=== PATIENT | male | born 1945 | race Caucasian/White ===

== ENCOUNTER → 2018-01-02 | Outpatient (CLI) | payer OTHER ==
[~2018-01-02] MED LIST: IOPAMIDOL (ISOVUE-300) 100 ML BTL ONE
== END ==
LOC: FIMAGING 10:46
PROVIDERS: ATTEND Physician Assistant Medical
DX: C61 Malignant neoplasm of prostate (principal); R59.1 Generalized enlarged lymph nodes
CPT/HCPCS: 74177; Q9967

== ENCOUNTER → 2018-01-08 | Outpatient (CLI) | payer OTHER | LOC: FIMAGING 10:17 | PROVIDERS: ATTEND Physician Assistant Medical | DX: C61 Malignant neoplasm of prostate (principal) | CPT/HCPCS: 78306; A9503 ==

== ENCOUNTER 2018-05-14 07:34 | Emergency (ER) | payer OTHER ==
[2018-05-14 07:39] VITALS: BP 178/85
--- NOTE | 2018-05-14 07:41 | EDPHY ---
H & P Stated Complaint: unable to urinate Time Seen by Provider: 05/14/18 08:05 HPI/ROS: CHIEF COMPLAINT: Unable to urinate HISTORY OF PRESENT ILLNESS: 73-year-old male with prostate cancer presents with inability to urinate. Last normal urination was yesterday evening. Throughout the night, he woke multiple times with the urge to urinate, followed by dribbling urination. Ultimately he was unable to urinate. Associated with gradually increasing lower abdominal discomfort. No prior history of urinary retention. REVIEW OF SYSTEMS: complete 10 point ROS reviewed and is negative except for the noted elements in the HPI Source: Patient - Medical/Surgical History Hx Asthma: No Hx Chronic Respiratory Disease: No Hx Diabetes: No Hx Cardiac Disease: No Hx Renal Disease: No Hx Cirrhosis: No Hx Alcoholism: No Hx HIV/AIDS: No Hx Splenectomy or Spleen Trauma: No Other PMH: prostate ca - Social History Smoking Status: Never smoked Alcohol Use: Sober Additional Social History: Urologist: Dr. Vivas - Physical Exam Exam: General Appearance: Alert, pleasant, seen after Dunn catheter placement Eyes: Pupils equal and round, no conjunctival pallor ENT, Mouth: Mucous membranes moist Neck: Normal inspection Respiratory: Lungs are clear to auscultation Cardiovascular: Regular rate and rhythm Gastrointestinal: Abdomen is soft and nontender Neurological: A&O, nonfocal exam Skin: Warm and dry Extremities: Normal inspection Psychiatric: Mood and affect normal Constitutional: Initial Vital Signs Temperature (C) 36.7 C 05/14/18 07:37 Heart Rate 91 05/14/18 07:37 Respiratory Rate 24 H 05/14/18 07:37 Blood Pressure 178/85 H 05/14/18 07:37 O2 Sat (%) 97 05/14/18 07:37 O2 Delivery Mode Room Air Allergies/Adverse Reactions: No Known Allergies Allergy (Unverified 05/14/18 07:36) Home Medications: Medication Instructions Recorded Aspirin 05/14/18 Heparin 1,000 Unit/10 (100/ml) 05/14/18 Medical Decision Making ED Course/Re-evaluation: Bladder scan reveals 678 mL of urine. A Dunn catheter was placed, after which the patient felt much better. Urinalysis is normal. Dunn catheter care instructions given. Will follow up with Dr. Vivas in the office in 2 days. - Data Points Laboratory Results: 05/14/18 08:00 Urine Color YELLOW Urine Appearance CLEAR Urine pH 5.0 (5.0-7.5) Ur Specific [place] 1.018 (1.002-1.030) Urine Protein NEGATIVE (NEGATIVE) Urine Ketones NEGATIVE (NEGATIVE) Urine Blood NEGATIVE (NEGATIVE) Urine Nitrate NEGATIVE (NEGATIVE) Urine Bilirubin NEGATIVE (NEGATIVE) Urine Urobilinogen NEGATIVE EU EU (0.2-1.0) Ur Leukocyte Esterase NEGATIVE (NEGATIVE) Urine Glucose NEGATIVE (NEGATIVE) Departure - Departure Disposition: Home, Routine, Self-Care Clinical Impression: Acute retention of urine Condition: Good Instructions: Urinary Retention in Men (ED), Dunn Catheter Placement and Care (ED) Referrals: Dao Vivas MD [Medical Doctor] - 2-3 days, call for appt. (Call Dr. Vivas to make an appointment.)
== END 2018-05-14 08:35 | disposition home or self-care (01) ==
PROC: 0T9B70Z Drainage of Bladder with Drainage Device, Via Natural or Artificial Opening (ICD-10-PCS; principal; 2018-05-14)
DX: R33.9 Retention of urine, unspecified (principal); C61 Malignant neoplasm of prostate

== ENCOUNTER 2018-05-29 13:30 | Observation (INO) | payer OTHER ==
--- NOTE | 2018-07-02 16:39 | GHP ---
ADMISSION DIAGNOSES: Prostate obstruction, urinary retention and prostate cancer. HISTORY OF PRESENT ILLNESS: This is a 73-year-old gentleman who has had prostate cancer and he has b een on androgen deprivation therapy because of an elevated PSA of 195 and he had a biopsy in 2010 vladimir t showed [place] 6 in 4 cores. He had progression of disease without any other intervention. At the present time, he is admitted for a TURP because of his urinary retention. His PSA originally in the year was at 253 and most recent PSA was 11.3 as of 06/16/2018. He had a creatinine of 1, BUN of 24. His glucose at that time was 95 but he has had a previous hemoglobin A1c up to 6.3% as of 06/16/2018 and the estimated blood glucose average was 134. At the present time, he is admitted for a TUR of th e prostate because of urinary retention. He has had a cardiac clearance. PAST MEDICAL HISTORY: Prostate cancer. He also had a left hydrocele and urinary retention. PAST SURGICAL HISTORY: Aspiration of hydrocele, ultrasound and biopsy of the prostate and leg surger y. MEDICATIONS: Depo-Lupron. ALLERGIES: None. FAMILY HISTORY: Noncontributory. SOCIAL HISTORY: Moderate alcohol consumption, nonsmoker. REVIEW OF SYSTEMS: Negative cardiac, respiratory, GI and endocrine. PHYSICAL EXAMINATION: VITAL SIGNS: Stable. CHEST: Clear. HEART: Regular rate and rhythm. ABDOME N: Normal. No organomegaly, rebound or guarding. LOWER EXTREMITIES: Normal at the present time. He as noted had a PSA that went from 253 down to 11.3 on Lupron. He has had the elevated hemoglobin A1c. His prostate volume by ultrasound as of March 2018 was 97 g. He had also had evaluation fo r his prostate cancer that showed intrapelvic lymph node metastasis. At the present time, he is admit shannan for a TUR of the prostate. Indications, complications and options have been discussed. Written a nd verbal consent has been obtained and he is admitted as for the above procedure. /[id number]/MODL
[2018-07-03] MEDS ORDERED: ceFAZolin 2 GM/DEXTROSE 100 ML IV ONE (09:22)
[2018-07-03] MEDS ORDERED: LR 1,000 ML IV ONE (09:40)
[2018-07-03] MEDS ORDERED: LIDOCAINE 1% 2 ML INJ ID PRN (09:40)
[2018-07-03] MEDS ORDERED: LIDOCAINE 2% 2 ML INJ ONE (10:14)
[2018-07-03] MEDS ORDERED: ROCURONIUM 50 MG/5 ML VIAL ONE (10:14)
[2018-07-03] MEDS ORDERED: ONDANSETRON 4 MG/2 ML VIAL ONE (10:14)
[2018-07-03] MEDS ORDERED: DEXAMETHASONE 4 MG/ML VIAL ONE (10:14)
[2018-07-03] MEDS ORDERED: PROPOFOL 200 MG/20 ML VIAL ONE (10:15)
[2018-07-03] MEDS ORDERED: fentaNYL 100 MCG/2 ML INJ ONE ×2 (10:15→11:13)
[2018-07-03] MEDS ORDERED: LIDOCAINE 2% JELLY 20 ML (UROJECT) ONE (10:34)
[2018-07-03] MEDS ORDERED: OPIUM/BELLADONNA ALKALO SUPP PR PRN (10:42)
[2018-07-03] MEDS ORDERED: HYDROCODONE/APAP 5/325 TAB PO PRN (10:42)
[2018-07-03] MEDS ORDERED: ONDANSETRON 4 MG/2 ML VIAL IVP PRN (10:43)
[2018-07-03] MEDS ORDERED: ACETAMINOPHEN 325 MG TAB PO PRN (10:43)
[2018-07-03] MEDS ORDERED: ZOLPIDEM TARTRATE 5 MG TAB PO PRN (10:43)
[2018-07-03] MEDS ORDERED: ONDANSETRON DISINTEGRATING 4 MG TAB PO PRN (10:43)
[2018-07-03] MEDS ORDERED: D5W LR 1,000 ML IV SCH (10:45)
--- NOTE | 2018-07-03 10:45 | PDANEPAE ---
ANE History of Present Illness BPH, TURP ANE Past Medical History - Cardiovascular History Hx Hypertension: No Hx Arrhythmias: No Hx Chest Pain: No Hx Coronary Artery / Peripheral Vascular Disease: No Hx CHF / Valvular Disease: No Hx Palpitations: No Cardiovascular History Comment: shortness of breath while exercising 02/2018 NOW RESOLVED. Saw broadcast technician and tests were done. - Pulmonary History Hx COPD: No Hx Asthma/Reactive Airway Disease: No Hx Recent Upper Respiratory Infection: No Hx Oxygen in Use at Home: No Hx Sleep Apnea: No Sleep Apnea Screening Result - Last Documented: Positive - Neurologic History Hx Cerebrovascular Accident: No Hx Seizures: No Hx Dementia: No - Endocrine History Hx Diabetes: No - Renal History Hx Renal Disorders: Yes Renal History Comment: BPH - Liver History Hx Hepatic Disorders: No - Neurological & Psychiatric Hx Hx Neurological and Psychiatric Disorders: No - Cancer History Hx Cancer: No - Congenital Disorder History Hx Congenital Disorders: No - GI History Hx Gastrointestinal Disorders: No - Other Health History Other Health History: NEG - Chronic Pain History Chronic Pain: No - Surgical History Prior Surgeries: FX LT LEG ORIF 2007 ANE Review of Systems Review of Systems: - Exercise capacity METS (RN): 4 METS ANE Patient History - Allergies Allergies/Adverse Reactions: No Known Allergies Allergy (Verified 07/03/18 09:28) - Home Medications Home Medications: Aspirin [Aspirin 81mg (*)] 81 mg PO DAILY 05/20/18 [Last Taken 06/19/18] Leuprolide Acetate [Eligard 22.5 mg (*)] 22.5 mg SC Q3M 05/20/18 [Last Taken ] Rosuvastatin Calcium [Crestor 10mg (RX)] 10 mg PO DAILY 07/01/18 [Last Taken Unknown] - NPO status NPO Since - Liquids (Date): 07/03/18 NPO Since - Liquids (Time): 06:00 NPO Since - Solids (Date): 07/02/18 NPO Since - Solids (Time): 18:00 - Smoking Hx Smoking Status: Never smoked - Family Anes Hx Family Hx Anesthesia Complications: NEG ANE Labs/Vital Signs - Vital Signs Blood Pressure: 134/78 Heart Rate: 68 Respiratory Rate: 16 O2 Sat (%): 95 Height: 180.34 cm Weight: 81.647 kg ANE Physical Exam - Airway Neck exam: FROM Mallampati Score: Class 2 Mouth exam: normal dental/mouth exam - Pulmonary Pulmonary: no respiratory distress - Cardiovascular Cardiovascular: regular rate and rhythym - ASA Status ASA Status: II ANE Anesthesia Plan Anesthesia Plan: general endotracheal anesthesia Total IV Anesthesia: No
[2018-07-03] MEDS ORDERED: MIDAZOLAM 2 MG/2 ML VIAL IVP ONE (10:46)
--- NOTE | 2018-07-03 10:46 | POSTOPPROG ---
Post Op Note Date of Operation: 07/03/18 (Dictated) Surgeon: Dao Vivas Anesthesia: LMA Pre-op Diagnosis: urinary retention, prostate cancer Procedure: TURP Inf/Abcess present in the surg proc area at time of surgery?: No EBL: 50-100 Drains: Other (catheter) Specimen(s): sent
[2018-07-03] MEDS ORDERED: MIDAZOLAM 2 MG/2 ML VIAL ONE (10:48)
[2018-07-03] MEDS ORDERED: GENTAMICIN SULFATE 80 MG/2 ML VIAL ONE (11:18)
[2018-07-03] MEDS ORDERED: NALOXONE HCL 0.4 MG/ML INJ IVP PRN (11:55)
[2018-07-03] MEDS ORDERED: fentaNYL 100 MCG/2 ML INJ IVP PRN (11:55)
[2018-07-03] MEDS ORDERED: oxyCODONE IR 5 MG TAB PO PRN (11:55)
[2018-07-03] MEDS ORDERED: ALBUTEROL 3 ML DEYVIAL IH PRN (11:55)
[2018-07-03] MEDS ORDERED: ACETAMINOPHEN 500 MG TAB PO PRN (11:55)
[2018-07-03] MEDS ORDERED: HYDROmorphONE/DILAUDID 2 MG/ML INJ IVP PRN (11:55)
[2018-07-03] MEDS ORDERED: MEPERIDINE 25 MG/0.5 ML AMP IVP PRN (11:55)
[2018-07-03] MEDS ORDERED: LR 500 ML IV PRN (11:55)
[2018-07-03] MEDS ORDERED: PROMETHAZINE HCL 25 MG/ML INJ IVP PRN (11:55)
--- NOTE | 2018-07-03 12:25 | POSTANESTH ---
Post Anesthetic Evaluation Cardiovascular Status: Normal, Stable Respiratory Status: Normal, Stable Level of Consciousness/Mental Status: Can Participate in Eval Pain Control: Adequate, Prn Tx Ordered Nausea/Vomiting Control: Adequate, Prn Tx Ordered Complications Possibly Related to Anesthesia: None Noted
--- NOTE | 2018-07-03 13:16 | GOP ---
DATE OF OPERATION: 07/03/2018 SURGEON: Dao Vivas MD PREOPERATIVE DIAGNOSIS: Prostate cancer with BPH, urinary obstruction. POSTOPERATIVE DIAGNOSIS: Prostate cancer with BPH, urinary obstruction. PROCEDURE PERFORMED: Transurethral resection of the prostate. FINDINGS: DESCRIPTION OF PROCEDURE: Gentleman after undergoing general anesthesia, being prepped and draped in normal sterile fashion, appropriate time-out, he received Ancef and gentamicin because of an indwell ing catheter. Then at that point, the scope was passed under direct vision. He had obstruction from his BPH and prostate cancer. The ureteral orifices were in normal position. Trigone did not appear to be infiltrated. At that point, the TUR was started by taking around the anterior part of the rig ht lateral lobe and right portion of the posterior lobe. Left lateral lobe and left portion of the p osterior most lobe resected in a similar fashion. At the end of the procedure, bladder was Ellik'd f ree of all chips and clots. Visualization revealed no residual chips or clots. Ureteral orifices pr eserved. External sphincter approximated at the midline symmetrically. Verumontanum preserved. Samantha brenner sent to Pathology. Uro-Jet placed in the urethra. A 22 three-way catheter passed. 90 cc ball oon inflated, traction placed, and irrigated clear. He will be admitted for postoperative care. /[id number]/MODL
--- NOTE | 2018-07-03 14:06 | ASMTCMCOM ---
CM Note CM Note Notes: CM spoke to MARANDA Stockton regarding d/c POC. Pt is a 73 y/o man admitted for prostate obstruction, urinary retention and prostate cancer. Pt will most likely d/c independent when medically stable. No therapies ordered at this time. CM available for changes. Plan: Independent Date Signed: 07/03/2018 02:05 PM Electronically Signed By:MANJULA Kerns
--- NOTE | 2018-07-04 11:00 | ASMTLACE ---
LACE Length of stay for Answers: 1 day current admission Acuity / Level of Answers: Yes Care: Did the patient have an inpatient admission? Comorbidities - select Answers: Any tumor (including all that apply lymphoma or leukemia) # of Emergency department Answers: 1-2 visits in the last 6 months Score: 7 Date Signed: 07/04/2018 11:00 AM Electronically Signed By:Michaela Payton RN
[2018-07-04 12:04] VITALS: BP 146/83
--- NOTE | 2018-07-04 14:58 | GDS ---
PREOPERATIVE DIAGNOSIS: Benign prostatic hypertrophy with prostate cancer and urinary obstruction. POSTOPERATIVE DIAGNOSIS: Benign prostatic hypertrophy with prostate cancer and urinary obstruction. After full discussion of options in the office with the full understanding that a TURP is not a treat ment for prostate cancer, patient elected to undergo a TURP for relief of urinary obstruction. This was done without complication, and tissue was sent for pathology. He is being discharged home in goo d condition. He is to follow up in our office in 3 weeks or on Saturday or Saturday if he has a cathete rMatthieu /[id number]/MODL
== END 2018-07-04 15:39 | disposition home or self-care (01) ==
LOC: INTOOBSV 07-03 09:03 → F1N 07-03 09:03
PROVIDERS: ADMIT Specialist; ATTEND Specialist
PROC: 0VT08ZZ Resection of Prostate, Via Natural or Artificial Opening Endoscopic (ICD-10-PCS; principal; 2018-07-03 10:30)
DX: N40.1 Benign prostatic hyperplasia with lower urinary tract symptoms (principal); N13.8 Other obstructive and reflux uropathy; R33.8 Other retention of urine; C61 Malignant neoplasm of prostate
CPT/HCPCS: G0378; J0690; J1100; J1580; J2250; J2405; J2704; J3010

== ENCOUNTER 2018-06-10 05:58 | Day surgery (SDC) | payer OTHER ==
[2018-06-10] MEDS ORDERED: ASPIRIN EC 325 MG TAB PO ONE ×2 (06:14→06:41)
[2018-06-10] MEDS ORDERED: NS 1,000 ML IV ONE (06:14)
[2018-06-10] MEDS ORDERED: diphenhydrAMINE 25 MG CAP PO ONE ×2 (06:14→06:40)
[2018-06-10] MEDS ORDERED: FAMOTIDINE 20 MG TAB PO ONE (06:14)
[2018-06-10] MEDS ORDERED: DIAZEPAM 5 MG TAB PO ONE (06:14)
[2018-06-10] MEDS ORDERED: FAMOTIDINE 20 MG TAB ONE (06:40)
[2018-06-10] MEDS ORDERED: DIAZEPAM 5 MG TAB ONE (06:41)
[2018-06-10 06:56] LABS: PLATELET COUNT 180 10^3/uL (150-400)
--- NOTE | 2018-06-10 07:00 | PDHPUP ---
History & Physical Update H&P update statement: This history and physical update is based on an assessment of the patient which was completed after admission or registration (within 24 hours), but prior to the surgery/procedure. H&P update: H&P reviewed & patient examined, no change in patient's condition since H&P completed
--- NOTE | 2018-06-10 07:00 | PDPROPOC ---
Sedation Plan of Care Sedation Plan of Care: mental status noted, patient educated of risks, benefits , alternatives, patient can tolerate sedation ASA Classification: ASA 2 Planned drugs: fentanyl, midazolam Mallampati Score: Class 2 Mallampati Reference Image: Patient passed 3-3-2 rule?: Yes
[2018-06-10 07:04] LABS: PROTIME(PATIENT) 13.4 SEC (12.0-15.0)
[2018-06-10] MEDS ORDERED: IOPAMIDOL (ISOVUE-370) 150 ML BTL IV ONE (07:05)
[2018-06-10] MEDS ORDERED: LIDOCAINE 1% 300 MG/30 ML SDV ONE (07:05)
[2018-06-10] MEDS ORDERED: MIDAZOLAM 2 MG/2 ML VIAL ONE (07:07)
[2018-06-10] MEDS ORDERED: fentaNYL 100 MCG/2 ML INJ ONE (07:07)
--- NOTE | 2018-06-10 07:52 | CPEKG ---
Test Reason : OPEN Blood Pressure : / mmHG Vent. Rate : 053 BPM Atrial Rate : 053 BPM P-R Int : 151 ms QRS Dur : 087 ms QT Int : 443 ms P-R-T Axes : 065 021 -01 degrees QTc Int : 416 ms Sinus rythm T wave inversion in Inferior leads Confirmed by Dilshad Bates ([id number]) on 06/10/2018 7:51:48 AM Referred By: Confirmed By:Dilshad Bates
--- NOTE | 2018-06-10 08:50 | CPIP ---
DATE OF PROCEDURE: 06/10/2018 INDICATION FOR PROCEDURE: Positive stress test, chest pain. PROCEDURE: 1. Nonselective right groin sheathogram. 2. Bilateral coronary angiography. 3. Left heart catheterization. 4. Left ventriculogram. HISTORY: Briefly, this is a 73-year-old male with history of strong family history of coronary arter y disease, positive stress test, abnormal ECG, as well as symptoms who was sent for left heart cathet erization. DESCRIPTION OF PROCEDURE: After informed consent, the patient was brought to [facility] where the right hermelindo in was prepped and draped in sterile fashion. Using local lidocaine, a short 6-Burmese sheath to the right common femoral artery, verified angiographically. Through the 6-Burmese sheath, a JL4 catheter advanced to the left coronary artery. Images of the left circumflex artery revealed normal left main . In the proximal left circumflex artery, there was at least 50% to 60% narrowing. After this, ther e was a large marginal 1, which was healthy and free of disease. There was a medium-sized marginal 2 artery, which had focal tubular 80% to 90% stenosis. There was a marginal 3 artery, which was healt hy and free of disease. The proximal LAD had tubular stenosis of at least 50% to 60%, best seen in t he caudal imaging. There was a large septal framing and hanging, which appeared to be healthy free of disease . There was a medium size diagonal artery, which had tubular 80% stenosis proximally. The LAD prope r distally appeared to be healthy free of disease. Of note, with the JL4 catheter imaging, there was collateralization to what appeared to be a large RPDA indicating most likely an occluded RCA. The JL4 catheter was removed. The JR4 catheter was advanced to the right coronary artery. Images of the right coronary artery revealed normal os, tubular disease in the proximal mid RCA with 100% occl usion in the mid distal RCA with some faint [id number]-gp-exosu collaterals. Of note, again left coronary injections did show significant collateralization from the left coronary to the right coronary. JR4 catheter was then removed. Pigtail catheter was advanced to the left ventricle. LVEDP is 12 mmH g. Left ventriculogram in the MAYO projection showed EF of 50% with inferobasal hypokinesis. No pull back gradient between the LV and aorta. Pigtail catheter was removed over the 0.035 wire. Right hermelindo in was closed with 6-Burmese Angio-Seal. The patient tolerated the procedure well with no complicatio ns. IMPRESSION: 1. Triple-vessel disease namely in the form of 100% occluded mid right coronary artery with right-to -right and esss-db-expbu collaterals, 80% marginal 2 artery disease, proximal left circumflex disease at least 50% to 60% disease, high-grade diagonal 1 artery disease with 80% to 90% stenosis proximall y, at least 50% to 60% calcified proximal left anterior descending disease, which may be under-called , secondary to limited visualization. 2. Low normal ejection fraction 50% with inferobasal hypokinesis. PLAN: Given the patient's coronary artery disease, as well as clinical history, I feel the patient w ould be best suited for an evaluation by CT surgery. Will contact Dr. Garza later this morning. I have explained this to the patient. Further orders following clinical course. /[id number]/MODL
[2018-06-10] MEDS ORDERED: OXYCODONE/APAP 5/325 TAB PO PRN (09:23)
[2018-06-10] MEDS ORDERED: ATROPINE SULFATE 1 MG/10 ML SYR IVP PRN (09:23)
[2018-06-10] MEDS ORDERED: NITROGLYCERIN 0.4 MG BTL SL PRN (09:23)
[2018-06-10] MEDS ORDERED: ONDANSETRON 4 MG/2 ML VIAL IVP PRN (09:23)
[2018-06-10] MEDS ORDERED: HYDROCODONE/APAP 5/325 TAB PO PRN (09:23)
--- NOTE | 2018-06-10 16:51 | PDCARPN ---
Cardiology Progress Note Chief Complaint: SOB Assessment/Plan: Assessment: CAD Plan: 06/10/18 16:[address] Garza I discussed case with Dr. Garza who felt RCA and OM2 would be difficult to place a bypass graft into and that LAD appeared non-critical. Suggested continued medical therapy. Will have patient d/c this AM to f/u in office next week. Patient and agree with plan and will f/u next week. 06/10/18 16:51 Subjective: no complaints Reviewed/Discussed With: other Time Spent with Patient: greater than 25 minutes Time Spent with Patient: Greater than 25 minutes spent on this patients care, greater than 50% of time spent counseling, educating, and coordinating care regarding the above mentioned plan. Objective: Intake/Output (24 Hrs) 06/09/18 06/10/18 06/11/18 05:59 05:59 05:59 Other: Weight 79.379 kg Result Diagrams: 06/10/18 06:40 06/10/18 06:40 - Physical Exam Constitutional: healthy appearing Eyes: PERRL Ears, Nose, Mouth, Throat: moist mucous membranes Cardiovascular: regular rate and rhythm Peripheral Pulses: 1+: femoral (R), femoral (L) Respiratory: clear to auscultate bilat Gastrointestinal: normoactive bowel sounds Genitourinary: no suprapubic tenderness Skin: no rashes Musculoskeletal: no muscular tenderness Neurologic: AAOx3 Psychiatric: cooperative ICD10 Worksheet Patient Problems: Problems Problem Status Onset CAD (coronary artery disease) Acute - ICD10 Problem Qualifiers (1) CAD (coronary artery disease) Qualifiers: Coronary Disease-Associated Artery/Lesion type: yurok artery Associated angina: with other forms of angina
== END 2018-06-10 11:54 | disposition home or self-care (01) ==
LOC: FCATH 05:58
PROVIDERS: ATTEND Internal Medicine Cardiovascular Disease
DX: R06.00 Dyspnea, unspecified (principal); I25.10 Atherosclerotic heart disease of native coronary artery without angina pectoris; C61 Malignant neoplasm of prostate
CPT/HCPCS: C1760; J1644; J2250; J3010; Q9967